=== PATIENT | female | born 1965 | race African-American/Black ===

== ENCOUNTER 2017-03-07 01:34 | Inpatient (IN) | payer OTHER ==
[~2017-03-07] VITALS: Ht 171.4 cm; Wt 94.8 kg
[2017-03-07 06:11] LABS: INR 0.98 (0.9-1.15); Partial Thromboplastin Time 25.1 sec (22.64-33.71); Prothrombin Time 10.7 sec (9.37-12.3)
[2017-03-07 06:12] LABS: Basophils # (auto) 0 uL; Basophils % (auto) 0.3 % (0.0-2.0); CONDITION Y; Eosinophils # (auto) 0 uL; Hematocrit 44.9 % (36.0-46.0); Hemoglobin 15.1 g/dL (12.2-16.2); Lymphocytes # (auto) 0.6 uL; Mean Corpuscular Hemoglobin 30.4 pg (28.0-32.0); Mean Corpuscular Hgb Conc. 33.5 g/dL (32.0-36.0); Mean Corpuscular Volume 90.7 fL (80.0-100.0); Mean Platelet Volume 10.8 fL (7.4-10.4); Monocytes # (auto) 0.4 uL; Monocytes % (auto) 5.2 % (0.0-12.0); Neutrophils # (auto) 7.2 uL; Neutrophils % (auto) 87.5 % (37.0-80.0); Platelet Count (auto) 200 10^3/uL (140-450); Red Cell Distribution Width 12.6 % (11.6-16.0); SUSPECT SEE PRINTOUT; White Blood Cell 8.3 10^3/uL (4.4-10.8)
[2017-03-07 06:24] LABS: Amylase 65 U/L (25-115); Anion Gap 12 (5-15); Aspartate Aminotransferase 16 U/L (15-37); BUN/Creatinine Ratio 16.7; Blood Urea Nitrogen 12 mg/dL (7-18); Calcium 8.9 mg/dL (8.5-10.1); Carbon Dioxide 23 mmol/L (21-32); Chloride 105 mmol/L (98-107); GFR African American 109 mL/min; GFR Non-African American 90 mL/min; Glucose 130 mg/dL (74-106); Magnesium 2.3 mg/dL (1.6-2.6); Sodium 140 mmol/L (136-145)
[2017-03-07 06:29] LABS: Alkaline Phosphatase 60 U/L (45-117); Bilirubin, Total 0.5 mg/dL (0.2-1.0); Total Protein 8.2 g/dL (6.4-8.2)
[2017-03-07] MEDS ORDERED: metroNIDAZOLE 500MG/100ML 100 ML IV ONE (07:15)
[2017-03-07] MEDS ORDERED: SODIUM CHLORIDE 0.9% 1,000 ML IV ONE (07:18)
[2017-03-07] MEDS ORDERED: POTASSIUM CHL 10% (20 MEQ/15ML) ORAL SOLN PO ONE (07:30)
[2017-03-07] MEDS ORDERED: ONDANSETRON HCL 4 MG/2 ML VIAL IV ONE (07:30)
[2017-03-07] MEDS: SODIUM CHLORIDE 0.9% 1,000 ML IV SCH ×2 (10:05→18:25)
[2017-03-07] MEDS ORDERED: ACETAMINOPHEN 325 MG TAB PO PRN (10:15)
[2017-03-07] MEDS ORDERED: ONDANSETRON HCL 4 MG/2 ML VIAL IV PRN (10:15)
[2017-03-07] MEDS ORDERED: ALPRAZolam 0.25 MG TAB PO PRN (10:15)
[2017-03-07] MEDS ORDERED: MORPHINE SULF INJ 2 MG/ML SYRINGE 1ML IV PRN ×2 (10:15)
[2017-03-07] MEDS ORDERED: NITROGLYCERIN 0.4 MG SL TAB SL PRN (10:15)
[2017-03-07] MEDS ORDERED: LISINOPRIL 20 MG TAB PO ONE (10:15)
[2017-03-07] MEDS ORDERED: DOCUSATE SOD 100 MG CAP PO PRN (10:15)
[2017-03-07] MEDS ORDERED: TEMAZEPAM 15 MG CAP PO PRN (10:15)
[2017-03-07] MEDS ORDERED: MORPHINE SULF INJ 2 MG/ML SYRINGE 1ML IV ONE (10:15)
[2017-03-07] MEDS: FAMOTIDINE 20 MG TAB PO SCH ×2 (10:57→21:49)
[2017-03-07] MEDS ORDERED: ALPR1TAB2 PO (12:55)
[2017-03-07] MEDS ORDERED: LISI-285 PO (12:55)
[2017-03-07 16:00] VITALS: BP 131/70
[2017-03-07 19:55] LABS: Urine Bilirubin Negative (Negative); Urine Blood Negative /uL (Negative); Urine Ca Oxalate Crystal FEW (None Seen); Urine Color Yellow (Yellow); Urine Glucose Normal (Normal); Urine Ketone TRACE (Negative); Urine Mucus MANY (None Seen); Urine Nitrite Negative (Negative); Urine RBC 4 /hpf (0 - 4)
[2017-03-07 20:00] VITALS: BP 136/71
[2017-03-07] MEDS ORDERED: LEVOFLOXACIN 500MG 100 ML IV ONE (21:00)
[2017-03-07 22:00] VITALS: BP 136/71
[2017-03-07] MEDS: metroNIDAZOLE 500MG/100ML 100 ML IV SCH (23:16)
[2017-03-08] VITALS (7 sets, daily range): BP systolic 118–131; BP diastolic 65–89
[2017-03-08] MEDS: SODIUM CHLORIDE 0.9% 1,000 ML IV SCH ×2 (03:06→14:20)
[2017-03-08] MEDS: metroNIDAZOLE 500MG/100ML 100 ML IV SCH ×3 (06:02→21:43)
[2017-03-08 06:35] LABS: Basophils # (auto) 0 uL; Basophils % (auto) 0.5 % (0.0-2.0); CONDITION Y; Eosinophils # (auto) 0.1 uL; Eosinophils % (auto) 1.8 % (0.0-7.0); Hematocrit 36.5 % (36.0-46.0); Hemoglobin 12.4 g/dL (12.2-16.2); Lymphocytes # (auto) 1.3 uL; Lymphocytes % (auto) 32.7 % (10.0-50.0); Mean Corpuscular Hemoglobin 30.5 pg (28.0-32.0); Mean Corpuscular Volume 89.6 fL (80.0-100.0); Mean Platelet Volume 10.5 fL (7.4-10.4); Monocytes # (auto) 0.4 uL; Monocytes % (auto) 11.2 % (0.0-12.0); Neutrophils # (auto) 2.1 uL; Neutrophils % (auto) 53.8 % (37.0-80.0); Platelet Count (auto) 137 10^3/uL (140-450); Red Cell Distribution Width 12.8 % (11.6-16.0); White Blood Cell 3.9 10^3/uL (4.4-10.8)
[2017-03-08 06:50] LABS: Albumin 3.2 g/dL (3.4-5.0); Calcium 7.8 mg/dL (8.5-10.1); Potassium 3.6 mmol/L (3.5-5.1)
[2017-03-08 06:55] LABS: Bilirubin, Total 0.5 mg/dL (0.2-1.0); Total Protein 6.5 g/dL (6.4-8.2)
[2017-03-08] MEDS: LEVOFLOXACIN 500MG 100 ML IV SCH (10:36)
[2017-03-08] MEDS: FAMOTIDINE 20 MG TAB PO SCH ×2 (10:36→21:43)
[2017-03-08] MEDS: LISINOPRIL 20 MG TAB PO SCH (10:37)
[2017-03-08] MEDS: MULTIPLE VITAMIN TAB PO SCH (10:37)
[2017-03-08] MEDS: HYDROcodone-ACET 5/325MG TAB PO PRN (10:37)
[2017-03-09] MEDS: HYDROcodone-ACET 5/325MG TAB PO PRN (00:55)
[2017-03-09] MEDS: SODIUM CHLORIDE 0.9% 1,000 ML IV SCH (03:13)
[2017-03-09 04:36] VITALS: BP 134/67
[2017-03-09] MEDS: metroNIDAZOLE 500MG/100ML 100 ML IV SCH (05:48)
[2017-03-09 08:00] VITALS: BP 136/57
[2017-03-09 09:00] VITALS: BP 136/57
[2017-03-09] MEDS: LEVOFLOXACIN 500MG 100 ML IV SCH (10:42)
[2017-03-09] MEDS: FAMOTIDINE 20 MG TAB PO SCH (10:42)
[2017-03-09] MEDS: MULTIPLE VITAMIN TAB PO SCH (10:42)
[2017-03-09] MEDS: LISINOPRIL 20 MG TAB PO SCH (10:44)
[2017-03-09 12:31] VITALS: BP 140/99
[2017-03-09 13:29] VITALS: BP 140/99
== END 2017-03-09 14:45 | disposition home or self-care (01) | DRG 392 ==
LOC: ER 01:48 → TELE 01:49 → TELE-E-ADS 11:17 → TELE-CENTR 15:45
PROVIDERS: ADMIT Internal Medicine; ATTEND Hospitalist
DX: R10.9 Unspecified abdominal pain (principal); J98.11 Atelectasis; E87.6 Hypokalemia; N18.2 Chronic kidney disease, stage 2 (mild); I12.9 Hypertensive chronic kidney disease with stage 1 through stage 4 chronic kidney disease, or unspecified chronic kidney disease; E86.0 Dehydration; K52.9 Noninfective gastroenteritis and colitis, unspecified; Z90.49 Acquired absence of other specified parts of digestive tract; Z90.710 Acquired absence of both cervix and uterus; Z88.2 Allergy status to sulfonamides; Z88.0 Allergy status to penicillin; Z98.84 Bariatric surgery status; Z82.49 Family history of ischemic heart disease and other diseases of the circulatory system
CPT/HCPCS: 36415; 71010; 74176; 80053; 81001; 82150; 83036; 83605; 83690; 83735; 84484; 85025; 85610; 85730; 87040; 87086; 93005; 96365; 96375; J1956; J2405; J3490